=== PATIENT | female | born 1940 | race American Indian/Alaskan Native ===

== ENCOUNTER 2017-04-10 10:29 | Outpatient (CLI) | payer MEDICARE, OTHER ==
--- NOTE | 2017-04-10 11:30 | Mammography Report ---
BONE DENSITY STUDY: DEFINITIONS: BMD = Bone Mineral Density T-score = BMD related to mean peak bone mass of young adult (mean expressed in Standard Deviation) Z-score = Age matched BMD expressed in SD World Health Organization (WHO) Diagnostic Criteria Normal T-score > -1 SD Osteopenia T-score between -1 and -2.4 SD Osteoporosis T-score -2.5 SD or below FINDINGS: The weighted average BMD of lumbar spine L1-L4 is 1.074 with a T-score of -0.7. The weighted average BMD of hip is 1.0161 with a T-score of -0.1. IMPRESSION: The patient's T-score is diagnostic for normal bone density and low relative risk for fracture. NOTE: BMD is not the only risk factor for fracture; also consider factors such as the patient's age, risk of falling, previous osteoporotic fracture, family history of osteoporotic fractures, current smoker, and low body weight. Gross's triangle is a region of interest in femur, predominantly of trabecular bone. It is not a true anatomic site, and ISCD does not recommend its use clinically.
== END 2017-04-10 10:30 | disposition home or self-care (01) ==
LOC: SPVWC 10:29
PROVIDERS: ATTEND Internal Medicine Hematology & Oncology
DX: Z13.820 Encounter for screening for osteoporosis (principal); Z78.0 Asymptomatic menopausal state; Z79.811 Long term (current) use of aromatase inhibitors
CPT/HCPCS: 77080

== ENCOUNTER 2017-12-18 09:31 | Outpatient (CLI) | payer MEDICARE, OTHER ==
--- NOTE | 2017-12-18 14:31 | Nuclear Medicine Report ---
BONE SCAN: History: Breast cancer Comparison: No previous bone scan at this facility. Correlation is made with CT chest abdomen and pelvis performed the same day. After injection of isotope, gamma camera imaging of the bony system was done. There is moderate degenerative uptake in the shoulders, sternoclavicular joints, spine and knees. No focal abnormal radiotracer uptake is identified to suggest metastatic disease. IMPRESSION: Degenerative changes. No evidence for metastatic disease.
--- NOTE | 2017-12-18 14:33 | Cat Scan Report ---
CT CHEST WITH CONTRAST: HISTORY: Carcinoma in situ of breast. COMPARISON: none. TECHNIQUE: Helical CT in 1.25mm intervals following IV contrast. Sagittal and coronal reformatted images. FINDINGS: Thyroid gland: Normal. Tracheobronchial tree: Normal. Esophagus: Normal. Heart: Normal. Pericardium: Normal. Mediastinum: Small hiatal hernia is noted. There are a few scattered benign-appearing paratracheal and AP window lymph nodes. No mediastinal adenopathy. Lung Noel: Adequately aerated. No evidence for nodule, mass or infiltrate. Pleural Spaces: Normal. Musculoskeletal: Mild thoracic spondylosis. No suspicious bony lesion is appreciated. IMPRESSION: Essentially unremarkable CT chest with contrast. No evidence for metastatic disease. Small hiatal hernia.
--- NOTE | 2017-12-18 14:38 | Cat Scan Report ---
CT ABDOMEN PELVIS WITH CONTRAST: HISTORY: Breast cancer. COMPARISON: 12/21/09. TECHNIQUE: Helical CT in 1.25mm intervals following IV contrast. Sagittal and coronal reconstructions. FINDINGS: Liver: Normal. Biliary system: There are a few tiny calcified gallstones in the gallbladder. No biliary dilatation. The common bile duct is normal caliber. Pancreas: Normal. Spleen: Normal. Kidneys/ureters/bladder: There are diffuse scattered simple cortical cysts in both kidneys measuring up to 1 cm. No evidence for mass, large calculus or hydronephrosis. The ureters and bladder are within normal limits. Adrenal glands: 1.5 cm indeterminate left adrenal nodule is unchanged since 2009. Normal right adrenal gland. Aorta: Normal. Intestines: Normal. Appendix: Not confidently identified, correlate with surgical history. Pelvic viscera: Hysterectomy. The ovaries are normal. Ascites: None. Adenopathy: None. Musculoskeletal: Mild thoracolumbar spondylosis. No suspicious bony lesion or fracture. IMPRESSION: No evidence for metastatic disease to the abdomen or pelvis. 1.5 cm left adrenal nodule which is unchanged since 2009. This probably represents an adenoma. Hysterectomy. Appendectomy. Small simple renal cysts. Cholelithiasis.
== END 2017-12-18 09:32 | disposition home or self-care (01) ==
LOC: NM 09:31
PROVIDERS: ATTEND Internal Medicine Hematology & Oncology
DX: C50.211 Malignant neoplasm of upper-inner quadrant of right female breast (principal); N28.1 Cyst of kidney, acquired; D50.9 Iron deficiency anemia, unspecified; K80.20 Calculus of gallbladder without cholecystitis without obstruction; M47.895 Other spondylosis, thoracolumbar region; K44.9 Diaphragmatic hernia without obstruction or gangrene; Z90.710 Acquired absence of both cervix and uterus; Z90.89 Acquired absence of other organs
CPT/HCPCS: 36415; 71260; 74177; 78306; 82565; 84520; A9503; Q9967

== ENCOUNTER 2018-10-21 20:36 | Emergency (ER) | payer MEDICARE, OTHER ==
--- NOTE | 2018-10-21 21:20 | Emergency Department Report ---
HPI - General Chief Complaint: Fall Time Seen by Provider: 10/21/18 21:08 - [facility] HPI: [place] 23 The patient is a 77-year-old female presenting with chief complaint of fall. The patient is a [facility] resident with a history of dementia who reportedly fell from the bed this evening. Staff reported the patient struck her head. The patient complains of pain in her right arm since the fall. Patient denies any other complaints Location: [See above] Duration: [See above] Quality: Pain Severity: Moderate Modifying factors: [see above] Context: [see above] Mode of transportation: [not driving] ED Past Medical Hx - Past Medical History Hx Hypertension: Yes Hx Diabetes: Yes Hx of Cancer: Yes (Breast Cancer s/p resection & xrt ~2008) Hx Dementia: Yes Additional medical history: Gout, Hypothyroidism - Surgical History Past Surgical History?: No Additional Surgical History: Mastectomy, breast corrective surgery, hysterectomy - Family History Family history: no significant - Social History Smoking Status: Former Smoker (none 30 years) Substance Use Type: None - Medications Home Medications: Home Medications Medication Instructions Recorded Confirmed Last Taken Type Ibuprofen [Motrin 600 MG tab] 600 mg PO Q8H PRN #10 tablet 10/22/18 Unknown Rx traMADol [Ultram] 50 mg PO Q6HR PRN #7 tablet 10/22/18 Unknown Rx ED Review of Systems ROS: Stated complaint: FALL Other details as noted in HPI Constitutional: see HPI Eyes: denies: eye pain ENT: denies: throat pain Respiratory: no symptoms reported Cardiovascular: denies: chest pain Endocrine: no symptoms reported Gastrointestinal: denies: abdominal pain Genitourinary: denies: dysuria Musculoskeletal: arthralgia, myalgia. denies: back pain Neurological: denies: headache Physical Exam - Physical Exam Vital Signs: Vital Signs 10/21/18 20:47 Temperature 97.6 F Pulse Rate 70 Respiratory 16 Rate Blood Pressure 134/84 O2 Sat by Pulse 98 Oximetry Physical Exam: GENERAL: The patient is well-developed well-nourished female lying on stretcher not appearing to be in acute distress. [] HEENT: Normocephalic. Atraumatic. Extraocular motions are intact. Patient has moist mucous membranes. NECK: Supple. No axial step offs CHEST/LUNGS: Clear to auscultation. There is no respiratory distress noted. HEART/CARDIOVASCULAR: Regular. There is no tachycardia. There is no gallop rub or murmur. ABDOMEN: Abdomen is soft, nontender. Patient has normal bowel sounds. There is no abdominal distention. SKIN: There is no rash. There is no edema. There is no diaphoresis. NEURO: The patient is awake, alert, and oriented. The patient is cooperative. The patient has no focal neurologic deficits. The patient has normal speech. Cranial nerves II through XII grossly intact, loose hand packer equal bilaterally MUSCULOSKELETAL: There is mild tenderness to palpation of the right humerus and forearm. There is no deformity of the right upper extremity. There is no tenderness to palpation of the left upper extremity. There is no evidence of acute injury. ED Course Vital Signs 10/21/18 20:47 Temperature 97.6 F Pulse Rate 70 Respiratory 16 Rate Blood Pressure 134/84 O2 Sat by Pulse 98 Oximetry ED Medical Decision Making - Radiology Data Radiology results: report reviewed (right humerus x-ray, right forearm x-ray, CT head, CT cervical spine), image reviewed (right humerus x-ray, right forearm x- ray, CT head, CT cervical spine) interpreted by me: Right humerus x-ray-no acute fracture Right forearm x-ray-no acute fracture [facility] [address] [place] [address] XRay Report Signed Patient: RIGOBERTO PHAN MR#: [id number] : 1940 Acct:[id number] Age/Sex: 77 / F ADM Date: 10/21/18 Loc: ED Attending Dr: Ordering Physician: GUSTAVO KENYON MD Date of Service: 10/21/18 Procedure(s): XR forearm RT Accession Number(s): [id number] cc: GUSTAVO KENYON MD Fluoro Time In Minutes: FINAL REPORT EXAM: XR FOREARM RT HISTORY: fall TECHNIQUE: Two views right forearm Comparison: None FINDINGS: Global osteopenia. No fracture or dislocation of the right radius or ulna. Proximal ulna at the junction with the humerus/trochlea is incompletely assessed. Mild soft tissue reticulation over the mid forearm. Carpals incompletely assessed. IMPRESSION: No acute forearm abnormality. Carpals and ulna/trochlear junction incompletely assessed. If concern for joint fracture, recommend dedicated wrist or elbow imaging. Transcribed By: MONAE Dictated By: VALERIE ROBERTS Electronically Authenticated By: VALERIE ROBERTS Signed Date/Time: 10/21/182206 DD/ 09 TD/TT: 10/21/182209 [address] [address] XRay Report Signed Patient: RIGOBERTO PHAN MR#: [id number] : 1940 Acct:[id number] Age/Sex: 77 / F ADM Date: 10/21/18 Loc: ED Attending Dr: Ordering Physician: GUSTAVO KENYON MD Date of Service: 10/21/18 Procedure(s): XR humerus 2+V RT Accession Number(s): [id number] cc: GUSTAVO KENYON MD Fluoro Time In Minutes: FINAL REPORT EXAM: XR HUMERUS 2+V RT HISTORY: fall TECHNIQUE: Two views right humerus Comparison: None FINDINGS: Global osteopenia. Glenohumeral joint incompletely assessed. No obvious fracture of the diaphysis of the humerus. Elbow joint incompletely assessed. Imaged right lung apex is clear. Acromioclavicular hypertrophy. IMPRESSION: No definite humeral fracture. Acromioclavicular hypertrophy. Glenohumeral joint incompletely assessed. Transcribed By: MP Dictated By: VALERIE ROBERTS Electronically Authenticated By: VALERIE ROBERTS Signed Date/Time: 10/21/182205 DD/ 07 TD/TT: 10/21/182207 [address] [address] Cat Scan Report Signed Patient: RIGOBERTO PHAN MR#: [id number] : 1940 Acct:[id number] Age/Sex: 77 / F ADM Date: 10/21/18 Loc: ED Attending Dr: Ordering Physician: GUSTAVO KENYON MD Date of Service: 10/21/18 Procedure(s): CT head/brain wo con Accession Number(s): [id number] cc: GUSTAVO KENYON MD FINAL REPORT EXAM: CT HEAD/BRAIN WO CON HISTORY: fall from bed TECHNIQUE: CT head without contrast PRIORS: None. FINDINGS: No acute intra-axial or extra-axial hemorrhage is identified. There is no evidence of midline shift or mass effect. The ventricles and sulci are within normal limits. Lakhani-white matter differentiation is intact. No acute parenchymal abnormalities seen. There are patchy and confluent hypodensities within the supratentorial white matter. Bony calvarium is grossly intact. There is some mucosal thickening and within the right maxillary sinus and multiple ethmoid cells. IMPRESSION: Chronic small vessel white matter ischemic change Evidence for chronic sinusitis Transcribed By: PAUL Dictated By: GEN OTT MD Electronically Authenticated By: GEN OTT MD Signed Date/Time: 10/21/182352 DD/ 53 TD/TT: 10/02 [facility] [address] [place] [address] Cat Scan Report Signed Patient: RIGOBERTO PHAN MR#: [id number] : 1940 Acct:[id number] Age/Sex: 77 / F ADM Date: 10/21/18 Loc: ED Attending Dr: Ordering Physician: GUSTAVO KENYON MD Date of Service: 10/21/18 Procedure(s): CT cervical spine wo con Accession Number(s): [id number] cc: GUSTAVO KENYON MD FINAL REPORT EXAM: CT CERVICAL SPINE WO CON HISTORY: fall from bed TECHNIQUE: Cervical spine five views PRIORS: None. FINDINGS: Vertebral bodies demonstrate normal height and alignment. There is degenerative disc change with multiple vertebral body osteophytes most prominent C4-C5 C6. Multilevel facet joint arthropathy noted. The facet joints demonstrate normal alignment. The spinous processes are intact. Craniocervical junction is unremarkable. C1 and C2 are intact. IMPRESSION: Degenerative disc disease and facet joint arthropathy No acute traumatic abnormality identified Transcribed By: PAUL Dictated By: GEN OTT MD Electronically Authenticated By: GEN OTT MD Signed Date/Time: 10/21/182356 DD/ 58 TD/TT: 10/21/182358 - Differential Diagnosis closed head injury, ICH, right arm contusion, right arm fracture Critical care attestation.: If time is entered above; I have spent that time in minutes in the direct care of this critically ill patient, excluding procedure time. ED Disposition Clinical Impression: Contusion of right arm, Closed head injury Disposition: DC- TO HOME OR SELFCARE Is pt being admited?: No Does the pt Need Aspirin: No Condition: Stable Additional Instructions: Return to the emergency department immediately should you develop worsening symptoms, fever, inability to tolerate food or liquid or any other concerns. Prescriptions: Ibuprofen [Motrin 600 MG tab] 600 mg PO Q8H PRN #10 tablet PRN Reason: Pain traMADol [Ultram] 50 mg PO Q6HR PRN #7 tablet PRN Reason: Pain Referrals: JUAREZ FLOR MD [Staff Physician] - 3-5 Days (Dr. Flor is an orthopedic surgeon. Please follow up with him for further evaluation if your pain persists) Time of Disposition: 00:02
--- NOTE | 2018-10-21 22:06 | XRay Report ---
FINAL REPORT EXAM: XR HUMERUS 2+V RT HISTORY: fall TECHNIQUE: Two views right humerus Comparison: None FINDINGS: Global osteopenia. Glenohumeral joint incompletely assessed. No obvious fracture of the diaphysis of the humerus. Elbow joint incompletely assessed. Imaged right lung apex is clear. Acromioclavicular hypertrophy. IMPRESSION: No definite humeral fracture. Acromioclavicular hypertrophy. Glenohumeral joint incompletely assessed.
--- NOTE | 2018-10-21 22:07 | XRay Report ---
FINAL REPORT EXAM: XR FOREARM RT HISTORY: fall TECHNIQUE: Two views right forearm Comparison: None FINDINGS: Global osteopenia. No fracture or dislocation of the right radius or ulna. Proximal ulna at the junction with the humerus/trochlea is incompletely assessed. Mild soft tissue reticulation over the mid forearm. Carpals incompletely assessed. IMPRESSION: No acute forearm abnormality. Carpals and ulna/trochlear junction incompletely assessed. If concern f or joint fracture, recommend dedicated wrist or elbow imaging.
[2018-10-21] MEDS ORDERED: ULTRAM PO ONE (23:10)
--- NOTE | 2018-10-21 23:53 | Cat Scan Report ---
FINAL REPORT EXAM: CT HEAD/BRAIN WO CON HISTORY: fall from bed TECHNIQUE: CT head without contrast PRIORS: None. FINDINGS: No acute intra-axial or extra-axial hemorrhage is identified. There is no evidence of midline shift or mass effect. The ventricles and sulci are within normal limits. Lakhani-white matter differentiation is intact. No acute parenchymal abnormalities seen. There are patchy and confluent hypodensities wit hin the supratentorial white matter. Bony calvarium is grossly intact. There is some mucosal thickening and within the right maxillary sin us and multiple ethmoid cells. IMPRESSION: Chronic small vessel white matter ischemic change Evidence for chronic sinusitis
--- NOTE | 2018-10-21 23:57 | Cat Scan Report ---
FINAL REPORT EXAM: CT CERVICAL SPINE WO CON HISTORY: fall from bed TECHNIQUE: Cervical spine five views PRIORS: None. FINDINGS: Vertebral bodies demonstrate normal height and alignment. There is degenerative disc change with mult iple vertebral body osteophytes most prominent C4-C5 C6. Multilevel facet joint arthropathy noted. Th e facet joints demonstrate normal alignment. The spinous processes are intact. Craniocervical juncti on is unremarkable. C1 and C2 are intact. IMPRESSION: Degenerative disc disease and facet joint arthropathy No acute traumatic abnormality identified
[2018-10-22 01:20] VITALS: BP 118/72
== END 2018-10-22 01:30 | disposition home or self-care (01) ==
LOC: ED 20:36
DX: S40.021A Contusion of right upper arm, initial encounter (principal); S09.90XA Unspecified injury of head, initial encounter; I10 Essential (primary) hypertension; E11.9 Type 2 diabetes mellitus without complications; M10.9 Gout, unspecified; E03.9 Hypothyroidism, unspecified; Z90.10 Acquired absence of unspecified breast and nipple; Z90.710 Acquired absence of both cervix and uterus; Z87.891 Personal history of nicotine dependence; W17.89XA Other fall from one level to another, initial encounter; Y93.89 Activity, other specified; Y92.89 Other specified places as the place of occurrence of the external cause; Y99.8 Other external cause status
CPT/HCPCS: 70450; 72125; 99284

== ENCOUNTER 2019-04-27 09:45 | Emergency (ER) | payer MEDICARE, OTHER ==
[2019-04-27] MEDS ORDERED: TYLENOL PO ONE (10:30)
--- NOTE | 2019-04-27 10:39 | Emergency Department Report ---
ED Fall HPI - General Chief Complaint: Fall Stated Complaint: HIP PAIN Time Seen by Provider: 04/27/19 10:22 Source: EMS Mode of arrival: Stretcher Limitations: No Limitations - History of Present Illness Initial Comments: 78-year-old female with a past history of dementia, diabetes, hypertension, gout, hypothyroidism, and physical disability with wheelchair dependence presents to the Hospital complains of bilateral hip pain after fall from wheelchair yesterday. Patient lives at [facility]. She states she tried to turn in her chair and the brakes while not locked causing her to fall on her left side. She complains impacting her left shoulder/arm and left-sided the body. She denies any head injury, neck pain, or LOC. All the patient does have dementia she is alert and oriented 3 in the ED. She has contractions to lower extremities with flexed position of the knee and is unable to fully extend. She complains of mild pain with passive and active movement of her bilateral hips. - Related Data Previous Rx's Medication Instructions Recorded Last Taken Type Ibuprofen [Motrin 600 MG tab] 600 mg PO Q8H PRN #10 tablet 10/22/18 Unknown Rx traMADol [Ultram] 50 mg PO Q6HR PRN #7 tablet 10/22/18 Unknown Rx Allergies Allergy/AdvReac Type Severity Reaction Status Date / Time No Known Allergies Allergy Unverified 12/18/17 09:30 ED Review of Systems ROS: Stated complaint: HIP PAIN Other details as noted in HPI Comment: All other systems reviewed and negative ED Past Medical Hx - Past Medical History Hx Hypertension: Yes Hx Diabetes: Yes Hx Dementia: Yes Additional medical history: Gout, Hypothyroidism,physical disability - Surgical History Additional Surgical History: Mastectomy, breast corrective surgery, hysterectomy - Social History Smoking Status: Never Smoker - Medications Home Medications: Home Medications Medication Instructions Recorded Confirmed Last Taken Type Ibuprofen [Motrin 600 MG tab] 600 mg PO Q8H PRN #10 tablet 10/22/18 Unknown Rx traMADol [Ultram] 50 mg PO Q6HR PRN #7 tablet 10/22/18 Unknown Rx ED Physical Exam - General Limitations: No Limitations - Other Other exam information: General: No limitations, patient is alert in no acute distress Head exam: Atraumatic, normocephalic Eyes exam: Normal appearance, pupils equal reactive to light, extraocular movements intact ENT: Moist mucous membrane, normal oropharynx Neck exam: Normal inspection, full range of motion, no meningismus nontender Respiratory exam: Clear to auscultation bilateral, no wheezes, rales, crackles Cardiovascular: Normal rate and rhythm Abdomen: Soft, nondistended, and nontender, with normal bowel sounds, no rebound, or guarding Extremity: Knees are flexed and unable to fully extend. Mild pain noted with active and passive movement of bilateral hips. No deformity. Mild tenderness to upper left arm without deformity. Full range of motion with minimal pain. Back: Normal Inspection, full range of motion, no tenderness Neurologic: Alert, oriented x3, cranial nerves intact, no motor or sensory deficit Psychiatric: normal affect, normal mood Skin: Warm, dry, intact, no ecchymosis ED Course Vital Signs 04/27/19 04/27/19 04/27/19 09:56 10:00 10:02 Temperature 98.9 F Pulse Rate 73 65 Respiratory 20 18 Rate Blood Pressure 146/126 141/100 Blood Pressure [Right] O2 Sat by Pulse 99 99 100 Oximetry 04/27/19 04/27/19 04/27/19 10:16 10:30 11:03 Temperature Pulse Rate 74 75 Respiratory 16 11 L 23 Rate Blood Pressure 111/64 137/65 Blood Pressure [Right] O2 Sat by Pulse 99 100 Oximetry 04/27/19 11:27 Temperature Pulse Rate 89 Respiratory 19 Rate Blood Pressure Blood Pressure 111/69 [Right] O2 Sat by Pulse 100 Oximetry ED Medical Decision Making - Radiology Data Radiology results: report reviewed pain after fall TECHNICAL DATA: AP and lateral views of the hip were obtained. FINDINGS: The hips are well mineralized. Articular spaces are well maintained. No evidence of a dislocation. There is no evidence of fracture. There is no radiographic evidence of hip effusion. IMPRESSION: Normal examination of both hips. HISTORY: pain after fall COMPARISON: None. TECHNIQUE: 2 FINDINGS: Bones: No fracture or dislocation. Joint spaces: Mild degenerative changes present Soft tissues: No soft tissue edema Additional findings: None. IMPRESSION: 1. No significant abnormality. - Medical Decision Making pt tx with tylenol no fxt on xray plan to d/c with otc meds tylenol or motrin prn pain - Differential Diagnosis fracture, contusion, sprain Critical Care Time: No Critical care attestation.: If time is entered above; I have spent that time in minutes in the direct care of this critically ill patient, excluding procedure time. ED Disposition Clinical Impression: Fall, Contusion of left arm, Bilateral hip pain Disposition: TO HOME OR SELFCARE Is pt being admited?: No Does the pt Need Aspirin: No Condition: Stable Instructions: Hip Sprain (ED), Shoulder Sprain (ED), Fall Prevention for Older Adults (ED) Additional Instructions: Take Tylenol or Motrin as needed for pain. Follow up with your doctor or the clinic/doctor provided. Return if symptoms worsen as indicated by your discharge instructions Referrals: your, primary care doctor [Other] - 3-5 Days JUAREZ CARTWRIGHT MD [Staff Physician] - 3-5 Days (orthopedic doctor ) Time of Disposition: 12:01
--- NOTE | 2019-04-27 11:28 | XRay Report ---
CLINICAL DATA: pain after fall TECHNICAL DATA: AP and lateral views of the hip were obtained. FINDINGS: The hips are well mineralized. Articular spaces are well maintained. No evidence of a dislocation. Th ere is no evidence of fracture. There is no radiographic evidence of hip effusion. IMPRESSION: Normal examination of both hips. Signer Name: Ryan Disla MD Signed: 04/27/2019 11:23 AM Workstation Name: [id number]
--- NOTE | 2019-04-27 11:29 | XRay Report ---
HISTORY: pain after fall COMPARISON: None. TECHNIQUE: 2 FINDINGS: Bones: No fracture or dislocation. Joint spaces: Mild degenerative changes present Soft tissues: No soft tissue edema Additional findings: None. IMPRESSION: 1. No significant abnormality. Signer Name: Ryan Disla MD Signed: 04/27/2019 11:24 AM Workstation Name: [id number]
[2019-04-27] MEDS ORDERED: ULTRAM PO ONE (12:11)
[2019-04-27 13:24] VITALS: BP 107/65
== END 2019-04-27 14:24 | disposition home or self-care (01) ==
LOC: ED 09:45
DX: S40.022A Contusion of left upper arm, initial encounter (principal); M25.551 Pain in right hip; M25.552 Pain in left hip; I10 Essential (primary) hypertension; E11.9 Type 2 diabetes mellitus without complications; E03.9 Hypothyroidism, unspecified; Z90.710 Acquired absence of both cervix and uterus; Z79.899 Other long term (current) drug therapy; Z98.890 Other specified postprocedural states; W05.0XXA Fall from non-moving wheelchair, initial encounter; Y93.89 Activity, other specified; Y92.89 Other specified places as the place of occurrence of the external cause; Y99.8 Other external cause status
CPT/HCPCS: 73521; 99283

== ENCOUNTER 2019-06-25 15:10 | Emergency (ER) | payer MEDICARE, OTHER ==
[2019-06-25] MEDS ORDERED: IPRATROPIUM/ALBUTEROL SULFATE 3 ML AMPUL.NEB IH ONE (16:20)
--- NOTE | 2019-06-25 17:02 | Emergency Department Report ---
ED Shortness of Breath HPI - General Chief Complaint: Upper Respiratory Infection Stated Complaint: NASAL CONGESTION Time Seen by Provider: 06/25/19 16:53 Source: patient Mode of arrival: Stretcher Limitations: No Limitations - History of Present Illness Initial Comments: Patient is a 78 years old female with history of dementia, hypertension, diabetes and history of breast cancer in remission. Patient is a assisted patient. Patient brought to the emergency room for evaluation of shortness of breath for the last 2 days. Patient is unable to provide more information, she stated that she does not know why she is here. Patient with moderate dyspnea however patient denied chest pain. MD Complaint: shortness of breath, cough -: Last night - Related Data Previous Rx's Medication Instructions Recorded Last Taken Type Ibuprofen [Motrin 600 MG tab] 600 mg PO Q8H PRN #10 tablet 10/22/18 Unknown Rx traMADol [Ultram 50 MG tab] 50 mg PO Q6HR PRN #10 tablet 04/27/19 Unknown Rx Allergies Allergy/AdvReac Type Severity Reaction Status Date / Time No Known Allergies Allergy Verified 06/25/19 16:33 ED Review of Systems ROS: Stated complaint: NASAL CONGESTION Other details as noted in HPI Comment: All other systems reviewed and negative Constitutional: denies: chills, fever Respiratory: cough, shortness of breath, wheezing Cardiovascular: denies: chest pain Gastrointestinal: denies: abdominal pain, nausea Musculoskeletal: denies: back pain Neurological: denies: headache ED Past Medical Hx - Past Medical History Previous Medical History?: Yes Hx Hypertension: Yes Hx Diabetes: Yes Hx of Cancer: Yes (breast caccer) Hx Dementia: Yes Additional medical history: Gout, Hypothyroidism,non ambulatory - Surgical History Past Surgical History?: Yes Additional Surgical History: Mastectomy, breast corrective surgery, hysterectomy - Social History Smoking Status: Never Smoker Substance Use Type: None - Medications Home Medications: Home Medications Medication Instructions Recorded Confirmed Last Taken Type Ibuprofen [Motrin 600 MG tab] 600 mg PO Q8H PRN #10 tablet 10/22/18 Unknown Rx traMADol [Ultram 50 MG tab] 50 mg PO Q6HR PRN #10 tablet 04/27/19 Unknown Rx ED Physical Exam - General Limitations: No Limitations General appearance: alert, in no apparent distress - Head Head exam: Present: atraumatic, normocephalic, normal inspection - Eye Eye exam: Present: normal appearance - ENT ENT exam: Present: normal exam, normal orophraynx, mucous membranes moist - Neck Neck exam: Present: normal inspection, full ROM. Absent: tenderness, meningismus, lymphadenopathy, thyromegaly - Respiratory Respiratory exam: Present: wheezes. Absent: respiratory distress, rales, rhonchi, stridor, accessory muscle use, decreased breath sounds, prolonged expiratory - Cardiovascular Cardiovascular Exam: Present: regular rate, normal rhythm, normal heart sounds - GI/Abdominal GI/Abdominal exam: Present: soft, normal bowel sounds. Absent: distended, tende rness, guarding, rebound, rigid, mass, bruit, pulsatile mass, hernia - Extremities Exam Extremities exam: Present: full ROM, normal capillary refill - Back Exam Back exam: Present: full ROM - Skin Skin exam: Present: abrasion (multiple areas of abrasion secondary to scratches by patient herself.) ED Course Vital Signs 06/25/19 06/25/19 15:39 17:33 Temperature 98.3 F Pulse Rate 75 81 Respiratory 16 16 Rate Blood Pressure 152/68 Blood Pressure 152/68 135/46 [Left] O2 Sat by Pulse 98 99 Oximetry ED Medical Decision Making - Lab Data Result diagrams: 06/25/19 17:42 06/25/19 17:42 - EKG Data -: EKG Interpreted by Md EKG shows normal: sinus rhythm Rate: normal - EKG Data Interpretation: no acute changes - Radiology Data Radiology results: report reviewed - Medical Decision Making Patient is a 78 years old female with history of dementia, hypertension, diabetes and history of breast cancer in remission. Patient is a assisted patient. Patient brought to the emergency room for evaluation of shortness of breath for the last 2 days. Patient is unable to provide more information, she stated that she does not know why she is here. Patient with moderate dyspnea however patient denied chest pain. Patient stated that she is feeling much better. Labs reviewed that is unremarkable. Chest x-rays showed no consolidation or pulmonary edema. Patient's symptoms is consistent with bronchitis. Patient received albuterol, Atrovent and Solu-Medrol. Patient advised to follow-up with primary care physician in the next 2-3 days and to attend to the ER if not feeling better. Critical care attestation.: If time is entered above; I have spent that time in minutes in the direct care of this critically ill patient, excluding procedure time. ED Disposition Clinical Impression: Acute bronchitis, Upper respiratory infection Disposition: - TO HOME OR SELFCARE Is pt being admited?: No Condition: Stable Instructions: Acute Bronchitis (ED) Referrals: PRIMARY CARE, [Referring] - 3-5 Days
--- NOTE | 2019-06-25 17:35 | XRay Report ---
CHEST 1 VIEW INDICATION: Dyspnea. COMPARISON: None. FINDINGS: Support devices: None. Heart: Normal. Lungs/Pleura: There are mild diffuse increased interstitial/reticular markings. No consolidation, eff usion, or pneumothorax. IMPRESSION: 1. Nonspecific mild diffuse increased interstitial/reticular markings without consolidation. These fi ndings could be seen in the setting of peribronchial cuffing (lower airways disease). Correlate clini darrion. Signer Name: Ivan Abreu MD Signed: 06/25/2019 5:30 PM Workstation Name: [id number]
[2019-06-25 17:58] LABS: Hematocrit 38.3 % (30.3-42.9); Hemoglobin 12.7 gm/dl (10.1-14.3); Mean Corpuscular HGB Conc 33 % (30-34); Mean Corpuscular Volume 86 fl (79-97); Platelet Count 315 K/mm3 (140-440); Red Blood Count 4.47 M/mm3 (3.65-5.03); Red Cell Distribution Width 13.7 % (13.2-15.2)
[2019-06-25 18:19] LABS: INR 1.13 (0.87-1.13)
[2019-06-25 18:20] LABS: Partial Thromboplastin Time 32.5 Sec. (24.2-36.6)
[2019-06-25 18:21] LABS: BUN/Creatinine Ratio 17; Blood Urea Nitrogen 17 mg/dL (7-17); Calcium 9.4 mg/dL (8.4-10.2); Hemolysis Index 14
[2019-06-25 18:23] LABS: Alanine Aminotransferase 13 units/L (7-56); Albumin 3.9 g/dL (3.9-5)
[2019-06-25 18:25] LABS: Bilirubin,Direct < 0.2 mg/dL (0-0.2)
[2019-06-25 19:41] VITALS: BP 118/57
[2019-06-25 19:47] LABS: RBC Morphology Normal; Total Cells Counted 100
== END 2019-06-25 21:00 | disposition home or self-care (01) ==
LOC: ED 15:10
DX: J20.9 Acute bronchitis, unspecified (principal); J06.9 Acute upper respiratory infection, unspecified; I10 Essential (primary) hypertension; E11.9 Type 2 diabetes mellitus without complications; F03.90 Unspecified dementia, unspecified severity, without behavioral disturbance, psychotic disturbance, mood disturbance, and anxiety; M10.9 Gout, unspecified; E03.9 Hypothyroidism, unspecified; Z85.3 Personal history of malignant neoplasm of breast; Z90.10 Acquired absence of unspecified breast and nipple; Z90.710 Acquired absence of both cervix and uterus; Z79.899 Other long term (current) drug therapy
CPT/HCPCS: 36415; 71045; 80048; 80076; 83735; 83880; 84484; 85007; 85025; 85610; 85730; 93005; 93010

== ENCOUNTER 2019-09-19 16:00 | Emergency (ER) | payer MEDICARE, OTHER ==
--- NOTE | 2019-09-19 20:00 | Cat Scan Report ---
CT head/brain wo con INDICATION / CLINICAL INFORMATION: 78 years Female; head trauma. TECHNIQUE: Routine CT head without contrast. All CT scans at this location are performed using CT dos e reduction for ALARA by means of automated exposure control. COMPARISON: None. FINDINGS: BRAIN / INTRACRANIAL CONTENTS: No acute hemorrhage, mass effect, midline shift, hydrocephalus, or acu te, large territorial infarct. Moderate cerebral and cerebellar atrophy. There are moderate areas of decreased attenuation in the white matter of the cerebral hemispheres. Th xavier are nonspecific findings and may be related to microangiopathy (hypertension, diabetes, atheroscl erosis), given the patient's age. It might be difficult to evaluate for small areas of ischemia witho ut diffusion imaging by MRI. CRANIOCERVICAL JUNCTION: No significant abnormality. ORBITS: No significant abnormality of visualized orbits. SINUSES / MASTOIDS: Hypoplastic right maxillary antrum seen which is largely opacified. Air-fluid lev el noted. Mild to moderate mucosal thickening seen in the ethmoids. She also partial opacification of the mastoids on the right. ADDITIONAL FINDINGS: Subcutaneous trauma seen in the right frontal region without signs of underlying calvarial fracture. Bilateral temporomandibular joint disease noted. Atherosclerotic disease is seen in the anterior circulation. IMPRESSION: 1. No focal mass, intracranial hemorrhage, hydrocephalus, or acute, large territorial infarct. Signer Name: Doroteo Woodruff MD, III Signed: 09/19/2019 7:56 PM Workstation Name: [id number]
--- NOTE | 2019-09-19 20:06 | Cat Scan Report ---
CT cervical spine wo con INDICATION / CLINICAL INFORMATION: 78 years Female; head trauma. TECHNIQUE: Axial CT images of the cervical spine were obtained. Sagittal and coronal reformatted images were pr oduced. All CT scans at this location are performed using CT dose reduction for ALARA by means of aut omated exposure control. COMPARISON: 10/21/2018 FINDINGS: POST-SURGICAL CHANGES: None. ALIGNMENT: Straightening of the cervical spine noted. VERTEBRAE: No signs of fracture. Vertebral bodies are grossly normal in height throughout. There is osseous foraminal narrowing on the left at C3-4 and C4-5, largely related to facet hypertrophy. Simil ar findings on the right at C4-5 and C5-6. Moderate facet hypertrophy seen at multiple levels. Marrow is mildly heterogeneous in appearance, the findings are not significantly changed from prior. INTRAVERTEBRAL DISCS: Mild disc space narrowing seen at C5-6 and C7-T1. Mild disc disease seen at mul tiple levels without dominant herniation. No definitive signs of significant canal stenosis appreciat ed. PARASPINAL SOFT TISSUES: No significant abnormality. ADDITIONAL FINDINGS: None. IMPRESSION: 1. No signs of acute bony trauma to the cervical spine. Signer Name: Doroteo Woodruff MD, III Signed: 09/19/2019 8:01 PM Workstation Name: [id number]
--- NOTE | 2019-09-19 20:13 | Emergency Department Report ---
ED General Adult HPI - General Chief complaint: Fall Stated complaint: FALL Time Seen by Provider: 09/19/19 17:20 Source: patient, EMS Mode of arrival: Stretcher Limitations: Other - History of Present Illness Initial comments: The patient presents to the emergency department with a chief complaint of a fall. The patient was brought to the emergency department from a local longterm for ground-level fall that occurred just prior to arrival. Patient complains of having a mild headache is not sure if she lost consciousness or not. Patient also complains of neck pain as well. She denies knee pain, hip pain, shoulder pain. -: Sudden Location: head, neck Radiation: non-radiation Severity scale (0 -10): 2 Quality: sharp Consistency: constant Improves with: none Worsens with: none Associated Symptoms: denies other symptoms Treatments Prior to Arrival: none - Related Data Previous Rx's Medication Instructions Recorded Last Taken Type Ibuprofen [Motrin 600 MG tab] 600 mg PO Q8H PRN #10 tablet 10/22/18 Unknown Rx traMADoL [Ultram 50 MG tab] 50 mg PO Q6HR PRN #10 tablet 04/27/19 Unknown Rx ALBUTEROL Inhaler (OR & NICU) 2 puff IH QID PRN #1 inhalation 06/25/19 Unknown Rx [ProAir HFA Inhaler] Prednisone [predniSONE 10 mg 10 mg PO .TAPER #1 tab.ds.pk 06/25/19 Unknown Rx (6-Day Pack, 21 Tabs)] guaiFENesin [Robitussin] 5 ml PO TID PRN #100 ml 06/25/19 Unknown Rx Allergies Allergy/AdvReac Type Severity Reaction Status Date / Time No Known Allergies Allergy Verified 06/25/19 16:33 ED Review of Systems ROS: Stated complaint: FALL Other details as noted in HPI Comment: All other systems reviewed and negative Constitutional: denies: chills, fever Eyes: denies: eye pain, eye discharge, vision change ENT: denies: ear pain, throat pain Respiratory: denies: cough, shortness of breath, wheezing Cardiovascular: denies: chest pain, palpitations Endocrine: no symptoms reported Gastrointestinal: denies: abdominal pain, nausea, diarrhea Genitourinary: denies: urgency, dysuria, discharge Musculoskeletal: denies: back pain, joint swelling, arthralgia Skin: denies: rash, lesions Neurological: denies: headache, weakness, paresthesias Psychiatric: denies: anxiety, depression Hematological/Lymphatic: denies: easy bleeding, easy bruising ED Past Medical Hx - Past Medical History Previous Medical History?: Yes Hx Hypertension: Yes Hx Diabetes: Yes Hx of Cancer: Yes (Breast) Hx Dementia: Yes Additional medical history: Gout, Hypothyroidism,non ambulatory - Surgical History Additional Surgical History: Mastectomy, breast corrective surgery, hysterectomy - Social History Smoking Status: Unknown if ever smoked - Medications Home Medications: Home Medications Medication Instructions Recorded Confirmed Last Taken Type Ibuprofen [Motrin 600 MG tab] 600 mg PO Q8H PRN #10 tablet 10/22/18 Unknown Rx traMADoL [Ultram 50 MG tab] 50 mg PO Q6HR PRN #10 tablet 04/27/19 Unknown Rx ALBUTEROL Inhaler (OR & NICU) 2 puff IH QID PRN #1 inhalation 06/25/19 Unknown Rx [ProAir HFA Inhaler] Prednisone [predniSONE 10 mg 10 mg PO .TAPER #1 tab.ds.pk 06/25/19 Unknown Rx (6-Day Pack, 21 Tabs)] guaiFENesin [Robitussin] 5 ml PO TID PRN #100 ml 06/25/19 Unknown Rx ED Physical Exam - General Limitations: Other General appearance: alert, in no apparent distress - Head Head exam: Present: normocephalic, other (hematoma to the right side of forehead) - Eye Eye exam: Present: normal appearance, PERRL, EOMI - ENT ENT exam: Present: mucous membranes moist - Neck Neck exam: Present: tenderness (tenderness to palpation of the midline C-spine) - Respiratory Respiratory exam: Present: normal lung sounds bilaterally. Absent: respiratory distress, wheezes - Cardiovascular Cardiovascular Exam: Present: regular rate, normal rhythm. Absent: systolic murmur, diastolic murmur, rubs, gallop - GI/Abdominal GI/Abdominal exam: Present: soft, normal bowel sounds. Absent: distended, tenderness - Extremities Exam Extremities exam: Present: normal inspection - Back Exam Back exam: Present: normal inspection - Neurological Exam Neurological exam: Present: alert, oriented X3 - Psychiatric Psychiatric exam: Present: normal affect, normal mood - Skin Skin exam: Present: warm, dry, intact, normal color. Absent: rash ED Course Vital Signs 09/19/19 09/19/19 09/19/19 17:13 17:15 17:30 Temperature Pulse Rate 75 74 75 Respiratory 12 11 L 25 H Rate Blood Pressure 145/52 144/52 Blood Pressure [Right] O2 Sat by Pulse 99 99 98 Oximetry 09/19/19 09/19/19 09/19/19 17:45 18:00 18:15 Temperature Pulse Rate 76 76 77 Respiratory 28 H 23 28 H Rate Blood Pressure 130/54 139/56 135/51 Blood Pressure [Right] O2 Sat by Pulse 96 97 97 Oximetry 09/19/19 09/19/19 09/19/19 18:30 18:44 18:45 Temperature 98.2 F Pulse Rate 76 68 74 Respiratory 18 18 22 Rate Blood Pressure 116/47 131/49 Blood Pressure 126/76 [Right] O2 Sat by Pulse 98 100 97 Oximetry ED Medical Decision Making - Radiology Data Radiology results: report reviewed - Medical Decision Making Results discussed with patient Critical care attestation.: If time is entered above; I have spent that time in minutes in the direct care of this critically ill patient, excluding procedure time. ED Disposition Clinical Impression: Closed head injury, Cervical strain, acute Disposition: DC-01 TO HOME OR SELFCARE Is pt being admited?: No Does the pt Need Aspirin: No Condition: Stable Instructions: Minor Head Injury (ED), Cervical Sprain (ED) Additional Instructions: return if worse Referrals: [facility] [Provider Group] - 3-5 Days [facility] [Provider Group] - 3-5 Days BIANCA HERNANDEZ MD [Staff Physician] - 3-5 Days Time of Disposition: 20:12
[2019-09-19 20:44] VITALS: BP 104/47
== END 2019-09-19 23:09 | disposition home or self-care (01) ==
LOC: ED 16:00
DX: S16.1XXA Strain of muscle, fascia and tendon at neck level, initial encounter (principal); S09.90XA Unspecified injury of head, initial encounter; I10 Essential (primary) hypertension; E11.9 Type 2 diabetes mellitus without complications; F03.90 Unspecified dementia, unspecified severity, without behavioral disturbance, psychotic disturbance, mood disturbance, and anxiety; E03.9 Hypothyroidism, unspecified; W18.30XA Fall on same level, unspecified, initial encounter; Y93.89 Activity, other specified; Y92.89 Other specified places as the place of occurrence of the external cause; Y99.8 Other external cause status
CPT/HCPCS: 70450; 72125; 99284